=== PATIENT | female | born 1985 | race Asian ===

== ENCOUNTER 2018-11-03 14:44 | Inpatient (IN) | payer BC ==
[2018-11-03 15:14] LABS: ADD MAN DIFF? NO
[2018-11-03 15:16] LABS: WHITE BLOOD COUNT 7.6 10^3/ul (4.8-10.8)
[2018-11-03 15:16] LABS: BASOPHILS % 0.4 % (0.0-2.0); EOSINOPHILS # 0.1 10^3/ul (0.0-0.5); EOSINOPHILS % 1.4 % (0.0-7.0); HEMATOCRIT 36.9 % (37.0-47.0); HEMOGLOBIN 12.3 g/dl (12.0-16.0); LYMPHOCYTES # 2.1 10^3/ul (0.8-2.9); LYMPHOCYTES % 27.7 % (15.0-51.0); MEAN CORPUSCULAR HGB CONC 33.3 g/dl (32.0-37.0); MEAN PLATELET VOLUME 11.2 fl (7.4-10.4); MONOCYTE # 0.7 10^3/ul (0.3-0.9); MONOCYTES % 8.5 % (0.0-11.0); NEUTROPHIL # 4.7 10^3/ul (1.6-7.5); NEUTROPHILS % 61.5 % (39.0-77.0); PLATELET COUNT 197 10^3/UL (140-415); RED BLOOD COUNT 4.24 10^6/ul (4.20-5.40); RED CELL DISTRIBUTION WIDTH 13.4 % (11.5-14.5)
[2018-11-03] MEDS: LACTATED RINGER'S 1,000 ML IV (15:17)
[2018-11-03] MEDS ORDERED: LIDOCAINE 1% (MPF) 30 ML INJ INJ (15:30)
[2018-11-03] MEDS ORDERED: MISOPROSTOL 200 MCG TAB PR ×2 (15:30→19:30)
[2018-11-03] MEDS ORDERED: CARBOPROST 250 MCG INJ IM ×2 (15:30→19:30)
[2018-11-03] MEDS ORDERED: OXYTOCIN 30 UNITS/LR 500 ML IV ×4 (15:30→19:30)
[2018-11-03] MEDS ORDERED: BUTORPHANOL 2 MG INJ IV (15:30)
[2018-11-03 15:38] LABS: INR 0.87; PROTIME 11.9 Sec (11.9-14.9); PT RATIO 0.9
[2018-11-03 15:39] LABS: PARTIAL THROMBOPLASTIN TIME 25.7 Sec (23.0-35.0)
[2018-11-03] MEDS ORDERED: FENTAnyl 2MCG/ML-ROPIV 0.2% 100 ML (16:50)
[2018-11-03] MEDS ORDERED: ONDANSETRON 4 MG INJ IV ×2 (17:30→19:30)
[2018-11-03] MEDS ORDERED: FENTAnyl 2MCG/ML-ROPIV 0.2% 100 ML BAG EPI (17:30)
[2018-11-03] MEDS ORDERED: NALBUPHINE HCL (10 MG/1 ML) INJ IV (17:30)
[2018-11-03] MEDS ORDERED: NALOXONE (0.4 MG/ML) INJ IV (17:30)
[2018-11-03] MEDS: METHYLERGONOVINE 0.2 MG INJ IM (18:20)
[2018-11-03] MEDS: OXYTOCIN 30 UNITS/LR 500 ML IV ×3 (18:28→22:42)
[2018-11-03] MEDS ORDERED: HYDROCODONE/APAP (5/325) TAB PO ×2 (19:30)
[2018-11-03] MEDS ORDERED: MAGNESIUM HYDROXIDE 30ML CUP PO (19:30)
[2018-11-03] MEDS ORDERED: ZOLPIDEM 5 MG TAB PO (19:30)
[2018-11-03] MEDS ORDERED: METHYLERGONOVINE 0.2 MG TAB PO (19:30)
[2018-11-03] MEDS ORDERED: METHYLERGONOVINE 0.2 MG INJ IM (19:30)
[2018-11-03] MEDS ORDERED: DIPHENHYDRAMINE 25 MG CAP PO (19:30)
[2018-11-03] MEDS ORDERED: NA PHOSPHATE/BIPHOS 133 ML ENEMA PR (19:30)
[2018-11-03] MEDS: SENNA/DOCUSATE NA (8.6MG/50MG) TAB PO (21:00)
[2018-11-03 21:21] LABS: RAPID PLASMA REAGIN NONREACTIVE (NR)
[2018-11-03] MEDS: BENZOCAINE 20% 56 ML SPRAY TOP (22:41)
[2018-11-03] MEDS: WITCH HAZEL/GLYCERIN PAD PR (22:41)
[2018-11-03] MEDS: LANOLIN HPA 1 PKT TOP (22:41)
[2018-11-03] MEDS: IBUPROFEN 800 MG TAB PO (23:58)
[2018-11-04] MEDS: IBUPROFEN 800 MG TAB PO ×2 (05:32→12:57)
[2018-11-04 06:44] LABS: ADD MAN DIFF? NO
[2018-11-04 06:48] LABS: BASOPHILS % 0.3 % (0.0-2.0); EOSINOPHILS # 0.1 10^3/ul (0.0-0.5); EOSINOPHILS % 0.7 % (0.0-7.0); HEMATOCRIT 33.3 % (37.0-47.0); HEMOGLOBIN 11.1 g/dl (12.0-16.0); LYMPHOCYTES # 2.2 10^3/ul (0.8-2.9); MEAN CORPUSCULAR HEMOGLOBIN 29.1 pg (29.0-33.0); MEAN CORPUSCULAR HGB CONC 33.3 g/dl (32.0-37.0); MEAN CORPUSCULAR VOLUME 87.2 fl (82.0-101.0); MEAN PLATELET VOLUME 11.1 fl (7.4-10.4); MONOCYTE # 1.2 10^3/ul (0.3-0.9); MONOCYTES % 7.5 % (0.0-11.0); NEUTROPHILS % 76.8 % (39.0-77.0); PLATELET COUNT 160 10^3/UL (140-415); RED BLOOD COUNT 3.82 10^6/ul (4.20-5.40); RED CELL DISTRIBUTION WIDTH 13.2 % (11.5-14.5)
[2018-11-04 06:48] LABS: WHITE BLOOD COUNT 15.7 10^3/ul (4.8-10.8)
[2018-11-04] MEDS: LACTATED RINGER'S 1,000 ML IV* ×4 (07:30→14:05)
[2018-11-04] MEDS: LACTATED RINGER'S 1,000 ML IV ×3 (07:30→14:05)
[2018-11-04] MEDS: SENNA/DOCUSATE NA (8.6MG/50MG) TAB PO ×2 (08:43→21:00)
[2018-11-05] MEDS: SENNA/DOCUSATE NA (8.6MG/50MG) TAB PO (09:00)
[2018-11-05] MEDS: DIPHTH/TET/ACEL PERTUSS (ADULT) 0.5 ML VIAL IM* (09:51)
[2018-11-05] MEDS: MEASLES,MUMPS,RUBELLA VACCINE INJ SC* (09:51)
[2018-11-05] MEDS: VARICELLA VACCINE LIVE/PF 1,350 UNIT/0.5 ML ML SC* (09:52)
[2018-11-05] MEDS: IBUPROFEN 800 MG TAB PO (11:28)
== END 2018-11-05 14:30 | disposition home or self-care (01) | DRG 807 ==
LOC: OBT 14:44 → L-D 14:44 → OBT 15:00 → L-D 15:44 → PP1 20:39
PROVIDERS: Obstetrics & Gynecology
PROC: 10E0XZZ Delivery of Products of Conception, External Approach (ICD-10-PCS; principal; 2018-11-03)
PROC: 10907ZC Drainage of Amniotic Fluid, Therapeutic from Products of Conception, Via Natural or Artificial Opening (ICD-10-PCS; 2018-11-03)
PROC: 4A1H7CZ Monitoring of Products of Conception, Cardiac Rate, Via Natural or Artificial Opening (ICD-10-PCS; 2018-11-03)
PROC: 10H073Z Insertion of Monitoring Electrode into Products of Conception, Via Natural or Artificial Opening (ICD-10-PCS; 2018-11-03)
DX: O75.89 Other specified complications of labor and delivery (principal); Z37.0 Single live birth; Z3A.37 37 weeks gestation of pregnancy
CPT/HCPCS: 62322; 85025; 85610; 85730; 86592; 86850; 86900; 86901; 90716